=== PATIENT | female | born 2000 | race Caucasian/White ===

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

== ENCOUNTER 2019-01-26 11:00 | Outpatient (RCR) | payer OTHER, SELFPAY ==
--- NOTE | 2018-11-10 15:03 | HP.PTEVAL_ITS ---
Patient's Visit Information MARCO MENDOZA is a 18 year old F referred to Physical Therapy by Lam Keys III, MD with a diagnosis of ACL reconstruction allograft 10/27/18. Date of Evaluation: 11/10/18 Physical Therapist: Alessia Maldonado DPT - Visit Plan Frequency: 2x /Week Duration: 6 Weeks Plan: Follow ACL protocol - Subjective Findings: Had Right ACL Reconstruction with allograft 10/27/18- Dr. Keys- fell skiing in [place]. Student at [employer]- back to school so she did 2 PT session at [facility] and now she is here. The last measurement was 85 degrees and they gave her a home exercise program. Patient reports the knee is mostly just sore and achy. Worst: 11/25 Agg: bending it Eases: ice. Best: 08/27 mostly just feels there. Patient is driving- does have a car at [place]. Plans to go home for the summer so she is here for 6 weeks then. Sleep: does not disturbe. Patient is wearing the brace all the time except for exercises. Crutches only when in large groups- or long days. [employer]. Wants to go back to snow skiing, golf and does really intense hiking- very active. Dorm: handicapped accessible and has an elevator. Goes home December 23. PMHx: none Meds: vitamin D - Objective Posture: good throughout. Gait: antalgic- TROM brace on the right LE-unlocked- decreased stance on the right LE with poor heel/toe pattern. Palpation: tender along medial and lateral joint lines. Observation: steri strips still intact- bruising along medial and lateral joint lines. Girth: 6 below: 32 cm, Patella: 37.5 cm and 6 above: 46 cm. ROM: 0-100 degrees. Strength: Ankle: 5/5 Knee: weak but visible quad set, SLR: significant lag - Goals Goal 1:: Patient will be I with HEP and progression Goal Time Frame: 4-6 Weeks Goal 2:: Patient will ambulate >300 feet with a normalized gait pattern Goal Time Frame: 4-6 Weeks Goal 3:: Patietn cindy demo 0-130 degrees of ROM Goal Time Frame: 4-6 Weeks Goal 4:: Patient will demo girth equal to the non surgical leg 6 above patella Goal Time Frame: 4-6 Weeks - Rehabilitation Potential Physical Therapy Diagnosis: Patient presents with hypomobility- she has decreased rom, strengh and muscular endurance s/p ACL reconstruction 10/27/18 leading to abnormal gait and increased pain with ADL's. Rehabilitation Potential: Good - Anticipated Interventions Patient/Client Instruction: Educate patient on: Benefits of Fitness Program Therapeutic Exercise to Include: Strength training, Endurance training, Balance training, Agility training, Body mechanics, Postural training, Flexibilty training, Gait and locomotor training, Passive ROM, Active ROM, Dynamic Lumbar Stabilization For the Purpose of:: To improve muscle performance and motor function TENS: Yes Other electric stimulation: Yes Cryotherapy (ice pack, ice massage): Yes Thermo therapy (hot pack): Yes Ultrasound (thermal/non thermal): No Thank you for the opportunity to evaluate your patient. For Medicare and Medicare HMO plans, please review the plan of care and approve it. It will need to be FAXED BACK to us at [phone] for Medicare purposes. For Medicare only, by signing this I certify the plan of care. Please let me know if there are questions or concerns regarding this plan of care. Physician Signature: Date:
--- NOTE | 2018-12-23 09:41 | HP.PTREVAL ---
Lam Keys III, MD, It has been my pleasure to treat MARCO MENDOZA over the last 12 visits for ACL reconstruction allograft 10/27/18. Please see the progress note below for an update on the physical therapy plan of care! Subjective: The knee is doing great- she took a week break from PT due to school but is back. She has had very little pain but when she does have it its when she is active Objective/Function: ROM: 0-130 degrees, Squat: mild weight shift to the left. Girth: 6 above: 44 cm. Strength with dynamometer: Left flxn: 44.4, 49.5, 50.2, extn: 65.1, 63.0, 64.9 Right: flex: 36.2, 32.5, 35.1, extn: 52.7, 56.4, 52.6 lbs of force. Plan Plan: Cont 2-3x a week for 6 weeks- focus on quad girth, squat mechanics and continues strength/stabilization Goals Goal 1:: Patient will be I with HEP and progression Goal Time Frame: 4-6 Weeks Goal 2:: Patient will ambulate >300 feet with a normalized gait pattern Goal Time Frame: 4-6 Weeks Goal 3:: Patietn cindy demo 0-130 degrees of ROM Goal Time Frame: 4-6 Weeks Goal 4:: Patient will demo girth equal to the non surgical leg 6 above patella Goal Time Frame: 4-6 Weeks Anticipated Interventions Patient/Client Instruction: Educate patient on: Benefits of Fitness Program Therapeutic Exercise to Include: Strength training, Endurance training, Balance training, Agility training, Body mechanics, Postural training, Flexibilty training, Gait and locomotor training, Passive ROM, Active ROM, Dynamic Lumbar Stabilization For the Purpose of:: To improve muscle performance and motor function TENS: Yes Other electric stimulation: Yes Cryotherapy (ice pack, ice massage): Yes Thermo therapy (hot pack): Yes Ultrasound (thermal/non thermal): No Please do not hesitate to contact me at [phone] by phone or if you have questions or concerns regarding this new plan of care! Sincerely, Alessia Maldonado DPT
--- NOTE | 2019-01-26 11:28 | HP.PTREVAL ---
Lam Keys III, MD, It has been my pleasure to treat MARCO MENDOZA over the last 20 visits for ACL reconstruction allograft 10/27/18. Please see the progress note below for an update on the physical therapy plan of care! Subjective: Patient reports that the knee is doing pretty well- she feels some stiffness in her medial knee. Is planning to talk to her surgeon about running sooner than he wants them to. Objective/Function: Girth: Left: 48 cm, Right: 46.5 cm. ROM: 0-140 degrees. Strength: Left: flxn: 53,47,48 extn: 70,74,72. Right flxn: 43,45,42 extn: 68,63,64 Plan Plan: Continue with POC Goals Goal 1:: Patient will be I with HEP and progression Goal Time Frame: 4-6 Weeks Goal Progress: Progressing Goal 2:: Patient will ambulate >300 feet with a normalized gait pattern Goal Time Frame: 4-6 Weeks Goal Progress: Progressing Goal 3:: Patietn cindy demo 0-130 degrees of ROM Goal Time Frame: 4-6 Weeks Goal Progress: Goal Met Goal 4:: Patient will demo girth equal to the non surgical leg 6 above patella Goal Time Frame: 4-6 Weeks Goal Progress: Progressing Anticipated Interventions Patient/Client Instruction: Educate patient on: Benefits of Fitness Program Therapeutic Exercise to Include: Strength training, Endurance training, Balance training, Agility training, Body mechanics, Postural training, Flexibilty training, Gait and locomotor training, Passive ROM, Active ROM, Dynamic Lumbar Stabilization For the Purpose of:: To improve muscle performance and motor function TENS: Yes Other electric stimulation: Yes Cryotherapy (ice pack, ice massage): Yes Thermo therapy (hot pack): Yes Ultrasound (thermal/non thermal): No Please do not hesitate to contact me at [phone] by phone or if you have questions or concerns regarding this new plan of care! Sincerely, Alessia Maldonado DPT
--- NOTE | 2019-05-18 07:52 | HP.PT.NRP ---
HP - Discharge Summary (1) - Patient Information MARCO MENDOZA was seen in my office for initial evaluation on 11/10/18. The following Plan of Care was established for this patient: Initial Frequency: 2x /Week Initial Duration: 6 Weeks - Anticipated Interventions Patient/Client Instruction: Educate patient on: Benefits of Fitness Program Therapeutic Exercise to Include: Strength training, Endurance training, Balance training, Agility training, Body mechanics, Postural training, Flexibilty training, Gait and locomotor training, Passive ROM, Active ROM, Dynamic Lumbar Stabilization For the Purpose of:: To improve muscle performance and motor function TENS: Yes Other electric stimulation: Yes Cryotherapy (ice pack, ice massage): Yes Thermo therapy (hot pack): Yes Ultrasound (thermal/non thermal): No This patient was last seen in our office . Pertinent comments regarding their Physical therapy will appear below: Patient has returned to school- appropriate for d/c. At this point I will be discontinuing this patient from physical therapy. I would be happy to see this patient again in the future if found appropriate by the physician. Thank you! MK SalesT
== END 2019-01-26 19:00 | disposition home or self-care (01) ==
LOC: PT 11:00
PROVIDERS: Referring Provider Specialist; Visit Provider Specialist
DX: Z98.890 Other specified postprocedural states (principal)
CPT/HCPCS: 97014; 97110; 97161; 97164; G0283